=== PATIENT | female | born 1965 | race Caucasian/White ===

== ENCOUNTER → 2016-09-24 | Outpatient (CLI) | payer BC ==
[~2016-09-24] MED LIST: ASPI325T45 PO; CHOL2000 PO; CHOL4POW4 PO; CYAN100020 PO; IBUP-1050 PO; LORA-741 PO; MXZC25 PO; PARO1TAB27 PO; RANI150T3 PO
--- NOTE | 2016-09-25 08:21 | MAMMOGRAPHY REPORT ---
BILATERAL DIGITAL SCREENING MAMMOGRAM TOMOSYNTHESIS WITH CAD: 09/24/2016 CLINICAL HISTORY: Routine screening. Patient has no complaints. TECHNIQUE: Breast tomosynthesis in addition to standard 2D mammography was performed. Current study was also evaluated with a Computer Aided Detection (CAD) system. COMPARISON: Comparison is made to exams dated: 09/19/2015 mammogram, 05/04/2013 mammogram, 02/28/2012 m ammogram, 01/16/2011 mammogram, 08/10/2009 mammogram - [facility], and 12/01/2007. BREAST COMPOSITION: There are scattered areas of fibroglandular density in both breasts. FINDINGS: There are a few punctate microcalcifications, stable in each breast. No new suspicious mas s, architectural distortion or cluster of microcalcifications is seen. IMPRESSION: ACR BI-RADS CATEGORY 1: NEGATIVE There is no mammographic evidence of malignancy. A 1 year screening mammogram is recommended. The pa tient will receive written notification of the results. Approximately 10% of breast cancers are not detected with mammography. A negative mammographic report should not delay biopsy if a clinically suggestive mass is present. Gerda Roman M.D. ay/:09/24/2016 17:33:15 Garland Maker: Joann BENNETT(Coral)(M), [facility] letter sent: Normal 1/2 BI-RADS Code: ACR BI-RADS Category 1: Negative
== END | disposition home or self-care (01) ==
LOC: C.MAMM 14:19
PROVIDERS: ATTEND Obstetrics & Gynecology
DX: Z12.31 Encounter for screening mammogram for malignant neoplasm of breast (principal)

== ENCOUNTER → 2017-07-25 | Outpatient (CLI) | payer OTHER ==
[~2017-07-25] MED LIST changes: +ASPECOTC PO; -ASPI325T45 PO
== END | disposition home or self-care (01) ==
LOC: C.PAPS 11:56
PROVIDERS: ATTEND Obstetrics & Gynecology
DX: Z12.4 Encounter for screening for malignant neoplasm of cervix (principal)

== ENCOUNTER 2020-05-28 14:11 | Observation (INO) ==
[2020-05-28] MEDS ORDERED: NITROGLYCERIN SL 0.4 MG/TAB TAB SL PRN ×2 (14:34→20:37)
--- NOTE | 2020-05-28 14:40 | Emergency Department Note ---
History of Present Illness General Chief Complaint: Chest Pain Stated Complaint: BURNING IN CHEST & NECK AREA/STARTED NEW MED ON FR Time Seen by Provider: 05/28/20 14:20 Source: patient, RN notes reviewed and old records reviewed Mode of arrival: ambulatory Limitations: no limitations History of Present Illness Provider Complaint: chest pain Onset (ago): day(s) 3 Duration: intermittent Onset: during exertion Pain Location: left chest and epigastric Pain Radiation: back and neck Severity: mild Current Pain Intensity: 0 Quality: + aching Relieved By: + rest Exacerbated By: + exertion Context: + new medications (Paxil); no recent illness, no recent surgery and no recent immobilization Associated symptoms: no nausea, no vomiting, no diaphoresis, no dyspnea, no sense of impending doom, no syncope, no palpitations and no fever Treatments prior to arrival: none This is a 55-year-old female who presents emergency department complaining of chest pain. The patient reports for the past 3 days she has been having chest pain that radiates up into her neck as well as her back. The patient reports a large amount of anxiety. She reports rest makes the chest pain better however exertion makes it worse. She describes the pain as an ache. She has not taken anything for the pain. Related Data On Oral Contraceptives: No Home Medications Medication Instructions Recorded Confirmed Type losartan 50 mg tablet 50 mg PO BID 05/12/20 05/28/20 History cholecalciferol (vitamin D3) 25 mcg PO DAILY 05/28/20 05/28/20 History [Vitamin D3] cholestyramine (with sugar) 4 g PO DAILY 05/28/20 05/28/20 History paroxetine HCl 20 mg PO DAILY 05/28/20 05/28/20 History aspirin 81 mg PO QAM 30 Days #30 tab 05/29/20 Rx pantoprazole 40 mg PO QAM 30 Days #30 tab 05/29/20 Rx Allergies Allergy/AdvReac Type Severity Reaction Status Date / Time Sulfa (Sulfonamide Allergy Mild RASH Verified 05/28/20 14:52 Antibiotics) clarithromycin Allergy Unknown Verified 05/28/20 14:52 Penicillins AdvReac Mild N/V Verified 05/28/20 14:52 Past Med/Surg History Medical History Anxiety GERD (gastroesophageal reflux disease) Hypertension Surgical History History of cholecystectomy History of dilation and curettage Family History Father Hypertension Heart disease Parkinson disease Aunt Breast cancer Ethan Denies family history of Colorectal cancer Social History Smoking Status: Never smoker Hx Alcohol Use: Yes Hx Substance Use: No Preferred Language: Burmese Communication Ability: Effective Moving Van Driver Required: No Beliefs That Will Affect Care: None Current Living Situation: Spouse and Family Current Living Situation Comment: spouse and children Feels Safe at Home: Yes Assistive Devices: None Review of Systems A total of 10 systems reviewed and were otherwise negative Physical Exam Vital Signs Vital Signs - 24 hr 05/28/20 14:15 05/28/20 14:40 05/28/20 15:03 Temperature 36.7 C Temperature Source Oral Pulse Rate 83 Pulse Rate [Left Finger] 75 Respiratory Rate 19 22 Respiratory Effort / Characteristics Non-Labored Respiratory Depth Normal Blood Pressure 199/105 H Blood Pressure [Left Arm] 181/98 H Blood Pressure Mean 136 Blood Pressure Mean [Left Arm] 125 Pulse Oximetry 97 96 96 Oxygen Delivery Method Room Air Room Air Room Air Sepsis Recent Fever Within 48 Hours No Sepsis New/Unexplained Change in Mental Status No Sepsis Action Taken by Nursing No Action Required -VITAL SIGNS - Vital signs and nursing notes were reviewed. GENERAL - 55-year-old female appearing stated age who is in no acute distress. Communicates well with provider and answers questions appropriately. SKIN - Without rashes. HEAD - NC/AT. EYES - PERRL with EOMI bilaterally. Sclera anicteric. Palpebral conjunctiva pink and moist with no injection noted. EARS - No deformities of external structures noted on gross examination bilaterally. NOSE - Midline and without cyanosis. No epistaxis or purulent drainage noted. Septum midline without deviation or septal hematoma noted. MOUTH/OROPHARYNX - Without perioral cyanosis. Buccal mucosa pink and moist and without leukoplakia. Tongue midline with equal elevation of palate bilaterally. No tonsillar hypertrophy, erythema, or exudates noted. dentition noted. NECK - Neck with FROM. Supple to palpation. lymphadenopathy noted. No nuchal rigidity. LUNGS - Chest wall symmetric without accessory muscle use, intercostals retractions, or central cyanosis. Normal vesicular breath sounds CTA B/L. No wheezes, rales, or rhonchi appreciated. CARDIAC - RRR with S1/S2. No murmur, rubs, or gallops appreciated. ABDOMEN - Abdominal contour without pulsations or visible masses. BS normoactive all four quadrants. No tenderness, palpable masses, hepatosplenomegaly, or ascites noted. EXTREMITIES - No clubbing or peripheral cyanosis. No pretibial edema present. +3/5 radial, posterior tibial, and dorsalis pedis pulses palpated throughout. +5/5 strength noted in UE/LE bilaterally. NEUROLOGIC - Cranial nerves II through XII grossly intact. Sensory intact to li ght touch throughout. Patellar reflexes +2/4. PSYCH - A&Ox3 and cooperates fully with examiner. Pt is very pleasant and interacts well with examiner. Course Administered Medications Discontinued Medications Acetaminophen (Acetaminophen 325 Mg Tab) 650 mg PO Q4H PRN PRN Reason: Pain or Fever Stop: 06/27/20 20:36 Last Admin: 05/29/20 02:36 Dose: 650 mg Documented by: [id number] Hydrox/Mg Hydrox/Simethicone (Gi Cocktail Ed Use) 1 dose PO ONE ONE Stop: 05/28/20 14:43 Last Admin: 05/28/20 15:01 Dose: 1 dose Documented by: [id number] Aspirin (Aspirin 81 Mg Ectab) 81 mg PO QAM [facility] Stop: 06/28/20 08:59 Last Admin: 05/29/20 07:55 Dose: 81 mg Documented by: [id number] Cholestyramine Resin (Cholestyramine Light 4 Gm Pkt) 4 gm PO DAILY@1000 [facility] Stop: 06/28/20 09:59 Last Admin: 05/29/20 11:32 Dose: Not Given Documented by: [id number] Famotidine (Famotidine 40 Mg Tablet) 40 mg PO NOW ONE Stop: 05/28/20 14:43 Last Admin: 05/28/20 15:27 Dose: 40 mg Documented by: [id number] Potassium Chloride (K Pan / Wtr) 10 meq in 100 mls @ 100 mls/hr IV Q1H LASHANDA Stop: 05/28/20 17:29 Last Infusion: 05/28/20 17:58 Dose: 0 mls/hr Documented by: [id number] Admin: 05/28/20 16:40 Dose: 80 mls/hr Documented by: [id number] Infusion: 05/28/20 16:40 Dose: 0 mls/hr Documented by: [id number] Admin: 05/28/20 15:26 Dose: 100 mls/hr Documented by: [id number] Magnesium Sulfate/Dextrose (Magnesium Sulfate / D5w) 1 gm in 100 mls @ 50 mls/hr IV Q2H LASHANDA Stop: 05/29/20 00:59 Last Infusion: 05/29/20 04:59 Dose: 0 mls/hr Documented by: [id number] Admin: 05/28/20 23:40 Dose: 50 mls/hr Documented by: [id number] Infusion: 05/28/20 23:39 Dose: 50 mls/hr Documented by: [id number] Admin: 05/28/20 21:39 Dose: 50 mls/hr Documented by: [id number] Lorazepam (Lorazepam 0.5 Mg Tab) 0.5 mg PO Q6H PRN PRN Reason: Anxiety Stop: 06/27/20 20:36 Last Admin: 05/29/20 07:55 Dose: 0.5 mg Documented by: [id number] Losartan Potassium (Losartan Potassium 50 Mg Tab) 50 mg PO BID LASHANDA Stop: 06/27/20 20:59 Last Admin: 05/29/20 07:56 Dose: 50 mg Documented by: [id number] Admin: 05/28/20 21:40 Dose: 50 mg Documented by: [id number] Metoclopramide HCl (Metoclopramide Hcl Inj 5 Mg/Ml 2 Ml Vial) 10 mg IV NOW STA Stop: 05/28/20 15:20 Last Admin: 05/28/20 16:30 Dose: Not Given Documented by: [id number] Nitroglycerin (Nitroglycerin 2% Ointment 30gm Tube) 1 inch EXT NOW STA Stop: 05/28/20 17:04 Last Admin: 05/28/20 17:11 Dose: 1 inch Documented by: [id number] Pantoprazole Sodium (Pantoprazole 40 Mg Tab) 40 mg PO NOW STA Stop: 05/28/20 20:38 Last Admin: 05/28/20 21:39 Dose: 40 mg Documented by: [id number] Pantoprazole Sodium (Pantoprazole 40 Mg Tab) 40 mg PO QAM [facility]ASHANDA Stop: 06/28/20 08:59 Last Admin: 05/29/20 07:55 Dose: 40 mg Documented by: [id number] Paroxetine HCl (Paroxetine Hcl 20 Mg Tab) 20 mg PO DAILY LASHANDA Stop: 06/27/20 18:30 Last Admin: 05/28/20 19:20 Dose: 20 mg Documented by: [id number] Potassium Chloride (Potassium Chloride Crtab 20 Meq Tabcr) 40 meq PO NOW STA Stop: 05/28/20 15:19 Last Admin: 05/28/20 15:26 Dose: 40 meq Documented by: [id number] Potassium Chloride (Potassium Chloride Crtab 20 Meq Tabcr) 40 meq PO NOW STA Stop: 05/28/20 16:27 Last Admin: 05/28/20 16:39 Dose: 40 meq Documented by: [id number] Potassium Chloride (Potassium Chloride Crtab 20 Meq Tabcr) 20 meq PO BID LASHANDA Stop: 05/29/20 21:01 Last Admin: 05/29/20 07:56 Dose: 20 meq Documented by: [id number] Admin: 05/28/20 21:39 Dose: 20 meq Documented by: [id number] Sucralfate (Sucralfate 1 Gm Tab) 1 gm PO NOW STA Stop: 05/28/20 14:43 Last Admin: 05/28/20 15:01 Dose: 1 gm Documented by: [id number] Medical Decision Making Differential Diagnosis + fracture of rib, + pneumothorax, + stable angina, + unstable angina pectoris, + atypical chest pain, + st elevation myocardial infarction, + costochondritis, + chest pain, + biliary colic, + cardiac ischemia, + myocarditis, + pericarditis, + costochondritis, + pleurisy, + aortic dissection, + pulmonary embolism, + pneumonia, + musculoskeletal, + infections, + cholecystitis, + pancreatitis and + esophageal rupture Medical Records Attestation: I reviewed the patient's medical records. Home Medications Current Medication List: was personally reviewed by me Laboratory Data Attestation: I reviewed the patient's lab results. Result diagrams: 05/28/20 14:48 05/29/20 05:53 Labs: Lab Results 05/28/20 05/28/20 05/28/20 Range/Units 14:48 14:48 14:48 WBC 8.94 (4.8-10.8) K/uL RBC 4.82 (4.2-5.4) M/uL Hgb 14.7 (12.0-16.0) g/dL Hct 42.2 (37-47) % MCV 87.6 (80-100) fL MCH 30.5 (25-34) pg MCHC 34.8 (32-36) g/dL RDW Std Deviation 38.1 (36.4-46.3) fL RDW Coeff of Vivian 11.9 (11.5-14.5) % Plt Count 241 (130-400) K/uL MPV 9.8 (7.4-10.4) fL Immature Gran % (Auto) 0.1 % Neut % (Auto) 71.4 % Lymph % (Auto) 20.9 % [place] % (Auto) 5.9 % Eos % (Auto) 0.9 % Baso % (Auto) 0.8 % Neut # (Auto) 6.38 (1.4-6.5) K/uL Lymph # (Auto) 1.87 (1.2-3.4) K/uL [place] # (Auto) 0.53 (0.11-0.59) K/uL Eos # (Auto) 0.08 (0-0.5) K/uL Baso # (Auto) 0.07 (0-0.2) K/uL Immature Gran # (Auto) 0.01 (0.00-0.02) K/uL D-Dimer < 190 (0-500) ug/L FEU Sodium 140 (136-145) mmol/L Potassium 2.7 L (3.5-5.1) mmol/L Chloride 101 (98-107) mmol/L Carbon Dioxide 31 (21-32) mmol/L Anion Gap 8.0 (3-11) BUN 9 (7-18) mg/dl Creatinine 0.67 (0.6-1.2) mg/dl Est Cr Clr Drug Dosing 107.4 ml/min Est GFR ( Amer) 116.3 Est GFR (Non-Af Amer) 100.4 BUN/Creatinine Ratio 13.5 (10-20) Glucose 106 H (70-99) mg/dl Calcium 9.1 (8.5-10.1) mg/dl Total Bilirubin 0.5 (0.2-1) mg/dl AST 15 (15-37) U/L ALT 24 (12-78) U/L Alkaline Phosphatase 74 (45-117) U/L Total Creatine Kinase 51 (26-192) U/L CK-MB (CK-2) < 1.0 (0.5-3.6) ng/ml CK/CKMB % Calc TNP Troponin I 0.036 (0-0.045) ng/ml Total Protein 7.9 (6.4-8.2) gm/dl Albumin 4.2 (3.4-5.0) gm/dl Globulin 3.7 (2.5-4.0) gm/dl Albumin/Globulin Ratio 1.1 (0.9-2) Lipase 144 (73-393) U/L Imaging Data Chest x-ray: Radiologist's impression: [place], [place] [phone] XRay Report Patient: NILES LAL Admit Date: 05/28/20 MR#: [id number] Address1: [address] [place] [address] Acct ID:[id number] Address2: Date: 1965 [facility] Zip: [place] [address] Age: 55 Location: ED Sex: F Room/Bed: Att Phy: Diagnosis: BURNING IN CHEST & NECK AREA/STARTED NEW MED ON FR Raisa Phy: Leana Durant CRNP Service Date: 05/28/20 [facility] Phy: Interpreting Phy: Yrn Cleary MD Admit Phy: Ordering Phy: Nahun Prado MD cc: ~ XR chest 1V portable CLINICAL HISTORY: Atypical chest pain COMPARISON STUDY: 01/05/2012 FINDINGS: The cardiac and mediastinal contours are normal. There is no evidence of focal pulmonary consolidation. There is no evidence of failure. No pleural effusions are visualized.[ IMPRESSION: No active disease in the chest. ACT 112: Negative or not required by law. Electronically signed by: Yrn Cleary M.D. 05/28/2020 2:55 PM Dictated: 05/28/201453 Transcribed: 05/28/201453 ECG Data Attestation: I personally reviewed and interpreted this ECG as follows: Indication: chest pain Rate (beats per minute): 78 Rhythm: normal sinus Findings: no ST depression and no ST elevation Comparison ECG Date: from (06/06/2011) Change: no significant change Additional Comments: Repeat EKG at 1543 shows a normal sinus rhythm no ST elevation or depression QTC is 454 ventricular rate is 71. It is unchanged from the previous EKG. MDM Narrative This is a 55-year-old female who presents emergency department complaining of chest pain. The patient has an abnormal EKG however it is unchanged from the previous one back in 2012 however despite this her troponin is not 0. While she was observed here in the emergency department the patient's troponin actually went up. In addition her potassium was found to be low. She was started on IV potassium and given oral supplementation. Due to the elevation in the troponin I did discuss the case the hospitalist service did agree to admit the patient. Patient is in agreement with the treatment plan. Patient was seen and evaluated as above in room A12. Review was performed of nursing notes and vital signs. I did review pertinent previous visits and patient history. After obtaining a thorough history and physical examination the above work up was performed. An order was placed for continuous cardiac monitoring. The monitor shows a rate of 82 with Normal Sinus rhythm. The patient was evaluated during a period of high volume and high acuity while the hospital was at overcapacity during the global COVID-19 pandemic, and that diagnosis was suspected/considered upon their initial presentation. Their evaluation, treatment and testing was consistent with current guidelines for patients who present with complaints or symptoms that may be related to COVID-19 . Impression & Plan Chest pain, Hypokalemia, Hypertension Discharge Plan Visit Data Chief Complaint: Chest Pain Stated Complaint: BURNING IN CHEST & NECK AREA/STARTED NEW MED ON FR ED Provider: Nahun Prado Discharge Problem: Chest pain, Hypokalemia, Hypertension Patient Disposition: Admitted As Inpatient Condition: Good Discharge Instructions Interventions: ED Discharge Assessment Last Done: 05/28/20 19:59 Discharge Problem: Chest pain Qualifiers: Chest pain type: unspecified Qualified Code(s): R07.9 - Chest pain, unspecified Hypertension Qualifiers: Hypertension type: unspecified Qualified Code(s): I10 - Essential (primary) hypertension
[2020-05-28] MEDS ORDERED: SUCRALFATE 1 GM TAB PO STA (14:42)
[2020-05-28] MEDS ORDERED: FAMOTIDINE 40 MG TABLET PO ONE (14:42)
[2020-05-28] MEDS ORDERED: GI COCKTAIL ED USE PO ONE (14:42)
[2020-05-28 14:56] LABS: Basophils # (auto) 0.07 K/uL (0-0.2); Basophils % (auto) 0.8 %; Eosinophils # (auto) 0.08 K/uL (0-0.5); Eosinophils % (auto) 0.9 %; Hematocrit (blood only) 42.2 % (37-47); Hemoglobin 14.7 g/dL (12.0-16.0); Immature Granulocytes # (auto) 0.01 K/uL (0.00-0.02); Immature Granulocytes % (auto) 0.1 %; Lymphocytes # (auto) 1.87 K/uL (1.2-3.4); Lymphocytes % (auto) 20.9 %; Mean Corpuscular Hemoglobin 30.5 pg (25-34); Mean Corpuscular Hgb Conc 34.8 g/dL (32-36); Mean Corpuscular Volume 87.6 fL (80-100); Mean Platelet Volume 9.8 fL (7.4-10.4); Monocytes # (auto) 0.53 K/uL (0.11-0.59); Monocytes % (auto) 5.9 %; Neutrophils # (auto) 6.38 K/uL (1.4-6.5); Neutrophils % (auto) 71.4 %; Platelet Count 241 K/uL (130-400); RDW Coefficient of Variation 11.9 % (11.5-14.5); RDW Standard Deviation 38.1 fL (36.4-46.3); Red Blood Count 4.82 M/uL (4.2-5.4); White Blood Count 8.94 K/uL (4.8-10.8)
--- NOTE | 2020-05-28 14:56 | XRay Report ---
XR chest 1V portable CLINICAL HISTORY: Atypical chest pain COMPARISON STUDY: 01/05/2012 FINDINGS: The cardiac and mediastinal contours are normal. There is no evidence of focal pulmonary co nsolidation. There is no evidence of failure. No pleural effusions are visualized.[ IMPRESSION: No active disease in the chest. ACT 112: Negative or not required by law. Electronically signed by: Yrn Cleary M.D. 05/28/2020 2:55 PM
[2020-05-28 15:16] LABS: Alanine Aminotransferase 24 U/L (12-78); Albumin Level 4.2 gm/dl (3.4-5.0); Aspartate Aminotransferase 15 U/L (15-37); BUN Creatinine Ratio 13.5 (10-20); Blood Urea Nitrogen 9 mg/dl (7-18); Calcium 9.1 mg/dl (8.5-10.1); Carbon Dioxide 31 mmol/L (21-32); Chloride 101 mmol/L (98-107); Creatinine Clr Calc Pharmacy 107.4 ml/min; Est GFR (African American) 116.3; Est GFR (Non-African American) 100.4; Glucose 106 mg/dl (70-99); Lipase 144 U/L (73-393); Potassium 2.7 mmol/L (3.5-5.1); Sodium 140 mmol/L (136-145)
[2020-05-28] MEDS ORDERED: POTASSIUM CHLORIDE CRTAB 20 MEQ TABCR PO STA ×2 (15:18→16:26)
[2020-05-28] MEDS ORDERED: METOCLOPRAMIDE HCL INJ 5 MG/ML 2 ML VIAL IV STA (15:19)
[2020-05-28 15:21] LABS: Albumin Globulin Ratio 1.1 (0.9-2); Alkaline Phosphatase 74 U/L (45-117); Bilirubin,Total 0.5 mg/dl (0.2-1); Creatine Kinase 51 U/L (26-192); Creatine Kinase MB < 1.0 ng/ml (0.5-3.6); Globulin 3.7 gm/dl (2.5-4.0); Total Protein 7.9 gm/dl (6.4-8.2); Troponin I 0.036 ng/ml (0-0.045)
[2020-05-28] MEDS: POTASSIUM CHLORIDE / WTR 10 MEQ/100 ML PLCT IV SCH ×2 (15:26→16:40)
[2020-05-28] MEDS ORDERED: NITROGLYCERIN 2% OINTMENT 30GM TUBE EXT STA (17:03)
[2020-05-28 17:14] LABS: D Dimer < 190 ug/L FEU (0-500)
--- NOTE | 2020-05-28 17:51 | History & Physical Report ---
Date of Service May 28, 2020 Assessment & Plan (1) Chest pain: Chest pain is atypical and may be GERD however because her EKG is not "totally normal, we will have her in the hospital with troponins and likely pursue stress test in the morning Patient started on aspirin will be continued on losartan, checking a lipid panel in the morning (2) Abnormal EKG: Feeling abnormal EKG is likely from hypokalemia this will be augmented both with oral and intravenous potassium and also addition of magnesium (3) Diarrhea: This is cholestyramine will be continued. She says she takes this for years intermittently because of diarrhea subsequent to her cholecystectomy. She has had problems with hypokalemia in the past from her diarrhea she is not on any typical or augmenting medications for this and she does take hydrochlorothiazide which can likely augment her potassium loss (4) GERD (gastroesophageal reflux disease): Patient be on Protonix as transition from famotidine (5) Anxiety: Paroxetine continues and she will be given Ativan as needed History of Present Illness Primary Care Provider: JOAQUÍN Tilley Patient presents with concern for chest burning. Patient is a history of anxiety and she says she knows he has panic attacks that act sometimes like this. Chest burning has been intermittent over the last few days but what really is treated a concern is her potassium was 2.7 and looks like she has U waves on EKG. Subsequently she does not have a normal EKG. Additionally her troponin although not in the abnormal range is detectable subsequently she will be observed in our facility supplementing her potassium and magnesium trending her troponins and likely having a stress test in the morning. The patient states that at home she cannot reproduce her chest pain is not associated with any other symptoms and she has had problems in the past with hypokalemia from diarrhea which has been resolved and since her previous cholecystectomy. She takes intermittent cholestyramine to help with her diarrhea. She says this is also augmented by the fact that she has malrotation of the small bowel and her GI tract is not in the normal anatomical locations. She also has been on Pepcid for some time has been having increasing reflux symptoms she cannot tell whether this is sometimes may be reflux. Allergies Allergy/AdvReac Type Severity Reaction Status Date / Time Sulfa (Sulfonamide Allergy Mild RASH Verified 05/28/20 14:52 Antibiotics) clarithromycin Allergy Unknown Verified 05/28/20 14:52 Penicillins AdvReac Mild N/V Verified 05/28/20 14:52 Home Medications Medication Instructions Recorded Confirmed Type hydrochlorothiazide 12.5 mg tablet 12.5 mg PO BID 05/12/20 05/28/20 History losartan 50 mg tablet 50 mg PO BID 05/12/20 05/28/20 History cholecalciferol (vitamin D3) 25 mcg PO DAILY 05/28/20 05/28/20 History [Vitamin D3] cholestyramine (with sugar) 4 g PO DAILY 05/28/20 05/28/20 History famotidine 40 mg PO DAILY 05/28/20 05/28/20 History paroxetine HCl 20 mg PO DAILY 05/28/20 05/28/20 History Past Med/Surg History Surgical History History of cholecystectomy History of dilation and curettage Family History Father Hypertension Heart disease Parkinson disease Aunt Breast cancer Denies family history of Colorectal cancer Social History Smoking Status: Never smoker Feels Safe at Home: Yes Review of Systems Review of Systems: Complete resolution of her distress and fatigue no headache, blurry or double vision no speech or swallowing issues Burning type chest pain, without sensation of pressure or palpitations no shortness of breath, cough or wheezes no abdominal pain, nausea or vomiting, planes of dyspepsia, chronic intermittent diarrhea no dysuria, hematuria or frequency no focal joint pain or swelling no back pain, CVA tenderness or radicular pain no bruising, bleeding or rashes no focal signs of weakness or numbness or altered sensation complaints of anxiety recently started on paroxetine Physical Exam Physical Exam: The patient appeared well nourished and normally developed. Vital signs as documented. Head exam is normocephalic atraumatic no scleral icterus Neck is without JVD, thyromegaly, or carotid bruits. Lungs are clear to auscultation, no focal loss of breath sounds Cardiac exam, Rhythm is regular.. No murmurs, rubs or gallops. Abdominal exam reveals normal bowel sounds, soft non tender, no masses Extremities are nonedematous and both pedal pulses are present Neurologic exam is alert and oriented, no focal loss of strength or sensation Skin is without bruises or rashes Psychologically is with concerns for anxiety Results & Data Results & Data ([facility]) Vital Signs (Past 12 Hours) Vital Signs Temp Pulse Pulse Resp BP BP Pulse Ox 05/28/20 17:30 77 22 05/28/20 17:20 80 17 05/28/20 17:10 82 15 05/28/20 17:00 69 17 161/95 H 05/28/20 16:50 70 19 05/28/20 16:41 77 17 05/28/20 16:30 66 14 05/28/20 16:20 69 18 05/28/20 16:10 64 14 05/28/20 16:00 64 15 175/90 H 05/28/20 15:50 68 14 05/28/20 15:40 71 27 H 05/28/20 15:31 80 21 97 05/28/20 15:30 78 19 186/106 H 98 05/28/20 15:20 66 13 96 05/28/20 15:10 70 12 96 05/28/20 15:04 75 20 181/98 H 98 05/28/20 15:03 75 22 181/98 H 96 05/28/20 15:00 71 17 05/28/20 14:50 80 13 05/28/20 14:47 74 24 167/92 H 05/28/20 14:40 82 14 96 05/28/20 14:30 82 21 05/28/20 14:25 76 19 05/28/20 14:15 98.1 F 83 19 199/105 H 97 EKG shows sinus rhythm with U waves inferior Q waves Chest x-ray is clear Code Status & VTE Plan VTE Prophylaxis Plan VTE Prophylaxis will be ordered: Yes PG Care Time/CCT Total # of Minutes Spent Total Time Spent with Patient: Total time spent is greater than 50% in coordination of care (as documented) at patient's floor/unit and/or counseling patient: Coding Level of Care Code 66255 OBS Care - Level 3 Diagnoses Chest pain R07.9 Abnormal EKG R94.31 Diarrhea R19.7 GERD (gastroesophageal reflux disease) K21.9 Anxiety F41.9
[2020-05-28] MEDS ORDERED: PARoxetine HCL 20 MG TAB PO SCH (18:31)
[2020-05-28] MEDS ORDERED: ACETAMINOPHEN 325 MG TAB PO PRN (20:37)
[2020-05-28] MEDS ORDERED: METOPROLOL TARTRATE 1 MG/ML VIAL IV PRN (20:37)
[2020-05-28] MEDS ORDERED: ONDANSETRON INJ 2 MG/ML 2 ML VIAL IV PRN (20:37)
[2020-05-28] MEDS ORDERED: MoRPHine SULFATE 2 MG/ML CARP IV PRN (20:37)
[2020-05-28] MEDS ORDERED: LORazepam 0.5 MG TAB PO PRN (20:37)
[2020-05-28] MEDS ORDERED: PANTOprazole 40 MG TAB PO STA (20:37)
[2020-05-28] MEDS ORDERED: hydrALAZINE HCL 20 MG/ML VIAL IV PRN (20:37)
[2020-05-28] MEDS ORDERED: LORazepam 0.5 MG/1 ML VIAL IV PRN (20:37)
[2020-05-28] MEDS ORDERED: ALUMINUM/MAGNESIUM SUSP 30 ML UDC PO PRN (20:37)
[2020-05-28] MEDS: POTASSIUM CHLORIDE CRTAB 20 MEQ TABCR PO SCH (21:39)
[2020-05-28] MEDS: MAGNESIUM SULFATE / D5W 1 GM/100 ML BAG IV SCH ×2 (21:39→23:40)
[2020-05-28] MEDS: LOSARTAN POTASSIUM 50 MG TAB PO SCH (21:40)
--- NOTE | 2020-05-29 05:48 | Electrocardiogram Report ---
Test Reason : Blood Pressure : / mmHG Vent. Rate : 078 BPM Atrial Rate : 078 BPM P-R Int : 166 ms QRS Dur : 098 ms QT Int : 418 ms P-R-T Axes : 063 -22 027 degrees QTc Int : 476 ms Normal sinus rhythm Inferior infarct , age undetermined Nonspecific ST abnormality Abnormal ECG When compared with ECG of 05-JAN-2012 11:37, QT has lengthened Confirmed by Torrey Mcdonald ([id number]) on 05/29/2020 5:48:14 AM Referred By: REFERRED SELF Confirmed By:Torrey Mcdonald
--- NOTE | 2020-05-29 05:51 | Electrocardiogram Report ---
Test Reason : Blood Pressure : / mmHG Vent. Rate : 071 BPM Atrial Rate : 071 BPM P-R Int : 174 ms QRS Dur : 094 ms QT Int : 418 ms P-R-T Axes : 065 -10 045 degrees QTc Int : 454 ms Normal sinus rhythm Possible Left atrial enlargement Cannot rule out Anterior infarct , age undetermined Abnormal ECG When compared with ECG of 28-MAY-2020 14:24, No significant change was found Confirmed by Torrey Mcdonald ([id number]) on 05/29/2020 5:50:59 AM Referred By: REFERRED SELF Confirmed By:Torrey Mcdonald
[2020-05-29 07:05] LABS: BUN Creatinine Ratio 11.8 (10-20); Calcium 8.5 mg/dl (8.5-10.1); Creatinine Clr Calc Pharmacy 105.8 ml/min; Est GFR (African American) 116.3; Est GFR (Non-African American) 100.4; Magnesium 2.9 mg/dl (1.8-2.4)
[2020-05-29] MEDS: POTASSIUM CHLORIDE CRTAB 20 MEQ TABCR PO SCH (07:56)
[2020-05-29] MEDS: LOSARTAN POTASSIUM 50 MG TAB PO SCH (07:56)
[2020-05-29] MEDS ORDERED: Nursing to Pharmacy Communication SCH (08:45)
[2020-05-29] MEDS ORDERED: ASPIRIN 81 MG ECTAB PO SCH (09:00)
[2020-05-29] MEDS ORDERED: PANTOprazole 40 MG TAB PO SCH (09:00)
[2020-05-29] MEDS ORDERED: CHOLESTYRAMINE LIGHT 4 GM PKT PO SCH (10:00)
--- NOTE | 2020-05-29 10:40 | Cardiology Consultation ---
Date of Consultation May 29, 2020 Assessment & Plan (1) Chest pain: (2) Hypertension: (3) Hypokalemia: (4) Abnormal EKG: ASSESSMENT/PLAN: 1. Chest pain: Chest pain is atypical and not likely cardiac in nature based on her description. Stress echo imaging was negative for ischemia and she had no chest discomfort despite hypertensive response and good exercise tolerance. If further evaluation for noncardiac chest pain to primary service. She felt very relieved. 2. Hypertension: Blood pressure has been elevated throughout her hospital stay but normal at home. If he continues to have hypertension on discharge, would consider titrating her medical therapy. She admits to anxiety and perhaps that is playing a role in her elevated blood pressures here. Her hypertensive response during exercise could be due to receiving her medications just before the stress test and a few hours later than usual. This can be further adjusted by her PCP as necessary. 3. Hypokalemia: Supplementation was provided by hospitalist service. Consider potassium supplementation as an outpatient or changing her antihypertensive regimen from HCTZ to a different agent (potassium neutral or potassium-sparing). 4. Abnormal ECG: Nonspecific ST abnormality. No dynamic changes noted. Stress echo without ischemic changes. No further ischemic evaluation recommended at this time. 5. Disposition: Patient care communicated with Dr. Centeno of the primary hospitalist service. Follow-up with PCP. Thank you for allowing me to participate in the care of your patient. Please call for any other questions or concerns. Sincerely, Evan Mcdonald M.D. History of Present Illness Reason for Consultation: Chest pain Requesting Physician: Dr. Walls Attending Physician: Tom Centeno, History of Present Illness Mrs. Pruitt is a very pleasant 55-year-old female with a history significant for anxiety, hypokalemia, and GERD. She was admitted on 05/28/2020 under observation status for chest discomfort. She has been experiencing a burning sensation across her chest over the past 2 days. Two days ago, she had 1 episode and yesterday, she had 2 episodes. This pain is not exertional but did occur while standing upright. Chest discomfort resolved quickly within seconds spontaneously. She has a history of anxiety and states that this is different than her anxiety pain. She is currently chest pain-free. She denies associated shortness of breath. She denies syncope, near-syncope, edema, or bleeding. She does have occasional palpitations which is a chronic issue. Her heart can race at any time and describes episodes while in bed. She states that this typically occurs when she is hypokalemic, which is also a chronic issue. She takes HCTZ. In the emergency department, her troponin on presentation was 0.036, followed by 0.039 and then 0.038. ECG demonstrated sinus rhythm. She has not had any further chest discomfort while here. She states that her blood pressure at home has been reasonably controlled with systolic typically near 130 and diastolic in the 80s. She admits that her medications today were given later than she normally takes them at home as she typically takes them near 6:00 a.m.. She was started on paroxetine 1 day prior to her symptom onset. Review of systems: As above. Review of systems otherwise negative/unremarkable. Family history: Father had CAD/mi/CABG at age 58. Social history: Denies tobacco. Rare alcohol. No drugs. Lives at home with her and 2 sons. She also has 2 adult daughters. She works part-time for a dental office. She is unaccompanied. Allergies Allergy/AdvReac Type Severity Reaction Status Date / Time Sulfa (Sulfonamide Allergy Mild RASH Verified 05/28/20 14:52 Antibiotics) clarithromycin Allergy Unknown Verified 05/28/20 14:52 Penicillins AdvReac Mild N/V Verified 05/28/20 14:52 Home Medications Medication Instructions Recorded Confirmed Type losartan 50 mg tablet 50 mg PO BID 05/12/20 05/28/20 History cholecalciferol (vitamin D3) 25 mcg PO DAILY 05/28/20 05/28/20 History [Vitamin D3] cholestyramine (with sugar) 4 g PO DAILY 05/28/20 05/28/20 History paroxetine HCl 20 mg PO DAILY 05/28/20 05/28/20 History aspirin 81 mg PO QAM 30 Days #30 tab 05/29/20 Rx pantoprazole 40 mg PO QAM 30 Days #30 tab 05/29/20 Rx Patient History Medical History (Updated 05/29/20 @ 14:22 by Torrey Mcdonald MD) Anxiety GERD (gastroesophageal reflux disease) Hypertension Surgical History History of cholecystectomy History of dilation and curettage Family History Father Hypertension Heart disease Parkinson disease Aunt Breast cancer Denies family history of Colorectal cancer Social History Smoking Status: Never smoker Hx Alcohol Use: Yes Hx Substance Use: No Preferred Language: Kosovan Communication Ability: Effective 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 Alert and oriented. HEENT: Anicteric sclera. Neck: No JVD. No bruits. Normal carotid upstrokes bilaterally. Cardiac: PMI was nonpalpable. No ventricular heave. Regular rate and rhythm. Normal S1-S2. No murmurs, rubs, or gallops. Pulmonary: Clear to auscultation bilaterally without wheezes, rales, or rhonchi. Abdomen: Soft, nontender, nondistended, with normoactive bowel sounds. No bruits noted. Extremities: 2+ radial pulses bilaterally. 2+ posterior tibialis pulses bilaterally. No edema or cyanosis. No palpable cords. Psychiatric: Affect appears appropriate. Results & Data ([facility]) Vital Signs (Past 12 Hours) Vital Signs Temp Pulse Resp BP BP Pulse Ox 05/29/20 07:40 37.0 C 78 20 174/98 H 165/91 H 97 05/29/20 04:00 36.9 C 77 20 158/77 H 96 05/28/20 22:53 36.5 C 80 20 163/95 H 96 Laboratory Results Laboratory Results - last 24 hr 05/28/20 05/28/20 05/28/20 14:48 14:48 14:48 WBC 8.94 RBC 4.82 Hgb 14.7 Hct 42.2 MCV 87.6 MCH 30.5 MCHC 34.8 RDW Std Deviation 38.1 RDW Coeff of Vivian 11.9 Plt Count 241 MPV 9.8 Immature Gran % (Auto) 0.1 Neut % (Auto) 71.4 Lymph % (Auto) 20.9 [place] % (Auto) 5.9 Eos % (Auto) 0.9 Baso % (Auto) 0.8 Neut # (Auto) 6.38 Lymph # (Auto) 1.87 [place] # (Auto) 0.53 Eos # (Auto) 0.08 Baso # (Auto) 0.07 Immature Gran # (Auto) 0.01 D-Dimer < 190 Sodium 140 Potassium 2.7 L Chloride 101 Carbon Dioxide 31 Anion Gap 8.0 BUN 9 Creatinine 0.67 Est Cr Clr Drug Dosing 107.4 Est GFR ( Amer) 116.3 Est GFR (Non-Af Amer) 100.4 BUN/Creatinine Ratio 13.5 Glucose 106 H Calcium 9.1 Magnesium Total Bilirubin 0.5 AST 15 ALT 24 Alkaline Phosphatase 74 Total Creatine Kinase 51 CK-MB (CK-2) < 1.0 CK/CKMB % Calc TNP Troponin I 0.036 Total Protein 7.9 Albumin 4.2 Globulin 3.7 Albumin/Globulin Ratio 1.1 Triglycerides Cholesterol LDL Cholesterol, Calc VLDL Cholesterol, Calc HDL Cholesterol Cholesterol/HDL Ratio Lipase 144 COVID-19 Eval Order SARS-CoV-2, RNA, NAAT 05/28/20 05/28/20 05/28/20 18:00 18:00 21:20 WBC RBC Hgb Hct MCV MCH MCHC RDW Std Deviation RDW Coeff of Vivian Plt Count MPV Immature Gran % (Auto) Neut % (Auto) Lymph % (Auto) [place] % (Auto) Eos % (Auto) Baso % (Auto) Neut # (Auto) Lymph # (Auto) [place] # (Auto) Eos # (Auto) Baso # (Auto) Immature Gran # (Auto) D-Dimer Sodium Potassium Chloride Carbon Dioxide Anion Gap BUN Creatinine Est Cr Clr Drug Dosing Est GFR ( Amer) Est GFR (Non-Af Amer) BUN/Creatinine Ratio Glucose Calcium Magnesium Total Bilirubin AST ALT Alkaline Phosphatase Total Creatine Kinase CK-MB (CK-2) CK/CKMB % Calc Troponin I 0.039 Total Protein Albumin Globulin Albumin/Globulin Ratio Triglycerides Cholesterol LDL Cholesterol, Calc VLDL Cholesterol, Calc HDL Cholesterol Cholesterol/HDL Ratio Lipase COVID-19 Eval [facility] SARS-CoV-2, RNA, NAAT NEGATIVE 05/28/20 05/29/20 Unknown 05:53 WBC RBC Hgb Hct MCV MCH MCHC RDW Std Deviation RDW Coeff of Vivian Plt Count MPV Immature Gran % (Auto) Neut % (Auto) Lymph % (Auto) [place] % (Auto) Eos % (Auto) Baso % (Auto) Neut # (Auto) Lymph # (Auto) [place] # (Auto) Eos # (Auto) Baso # (Auto) Immature Gran # (Auto) D-Dimer Sodium 142 Potassium 4.0 D Chloride 107 Carbon Dioxide 32 Anion Gap 3.0 BUN 8 Creatinine 0.67 Est Cr Clr Drug Dosing 105.8 Est GFR ( Amer) 116.3 Est GFR (Non-Af Amer) 100.4 BUN/Creatinine Ratio 11.8 Glucose 93 Calcium 8.5 Magnesium 2.9 H Total Bilirubin AST ALT Alkaline Phosphatase Total Creatine Kinase CK-MB (CK-2) CK/CKMB % Calc Troponin I 0.038 Total Protein Albumin Globulin Albumin/Globulin Ratio Triglycerides 42 Cholesterol 163 LDL Cholesterol, Calc 93 VLDL Cholesterol, Calc 8 HDL Cholesterol 62 Cholesterol/HDL Ratio 3 Lipase COVID-19 Eval Order SARS-CoV-2, RNA, NAAT Diagnostic Findings ECGs personally reviewed: ECG 05/28/2020 at 3:43 p.m.: Sinus rhythm 71 beats per minute. ECG 05/28/2020 at 2:24 p.m.: Sinus rhythm 78 beats per minute. Possible inferior infarct. Nonspecific ST abnormality. Stress echo performed 05/29/2020: Good exercise tolerance. Negative stress echo imaging for ischemia. Target heart rate was attained. Normal LV systolic function. Chest x-ray 05/28/2020: No acute process per Radiology. Medications Administered Current Inpatient Medications Acetaminophen (Acetaminophen 325 Mg Tab) 650 mg PO Q4H PRN PRN Reason: Pain or Fever Stop: 06/27/20 20:36 Last Admin: 05/29/20 02:36 Dose: 650 mg Documented by: Al Hydrox/Mg Hydrox/Simethicone (Aluminum/Magnesium Susp 30 Ml Udc) 15 ml PO Q4H PRN PRN Reason: Dyspepsia Stop: 06/27/20 20:36 Aspirin (Aspirin 81 Mg Ectab) [facility] [place] [place] Stop: 06/28/20 08:59 Last Admin: 05/29/20 07:55 Dose: 81 mg Documented by: Cholestyramine Resin (Cholestyramine Light 4 Gm Pkt) 4 gm PO DAILY@1000 LASHANDA Stop: 06/28/20 09:59 Hydralazine HCl (Hydralazine Hcl 20 Mg/Ml Vial) 10 mg IV Q8 PRN PRN Reason: Blood Pressure - High Stop: 06/27/20 20:36 Lorazepam (Ativan) 0.5 mg in 1 mls @ 1 mls/min IV Q4H PRN PRN Reason: Agitation Stop: 06/27/20 20:36 Lorazepam (Lorazepam 0.5 Mg Tab) 0.5 mg PO Q6H PRN PRN Reason: Anxiety Stop: 06/27/20 20:36 Last Admin: 05/29/20 07:55 Dose: 0.5 mg Documented by: Losartan Potassium (Losartan Potassium 50 Mg Tab) 50 mg PO BID [facility] Stop: 06/27/20 20:59 Last Admin: 05/29/20 07:56 Dose: 50 mg Documented by: Metoprolol Tartrate (Metoprolol Tartrate 1 Mg/Ml Vial) 5 mg IV Q4 PRN PRN Reason: sbp> 185, dbp >95, HR >120 Stop: 06/27/20 20:36 Morphine Sulfate (Morphine Sulfate 2 Mg/Ml Carp) 2 mg IV Q30M PRN PRN Reason: Chest Pain Stop: 06/11/20 20:36 Nitroglycerin (Nitroglycerin Sl 0.4 Mg/Tab Tab) 0.4 mg SL UD PRN PRN Reason: Chest Pain Stop: 06/27/20 20:36 Ondansetron HCl (Ondansetron Inj 2 Mg/Ml 2 Ml Vial) 4 mg IV Q6H PRN PRN Reason: Nausea Stop: 06/27/20 20:36 Pantoprazole Sodium (Pantoprazole 40 Mg Tab) 40 mg PO QAM [facility] Stop: 06/28/20 08:59 Last Admin: 05/29/20 07:55 Dose: 40 mg Documented by: Paroxetine HCl (Paroxetine Hcl 20 Mg Tab) 20 mg PO QDD [facility] Stop: 06/28/20 16:29 Potassium Chloride (Potassium Chloride Crtab 20 Meq Tabcr) 20 meq PO BID [facility] Stop: 05/29/20 21:01 Last Admin: 05/29/20 07:56 Dose: 20 meq Documented by: PG Care Time/CCT Total # of Minutes Spent Total Time Spent with Patient: Total time spent is greater than 50% in coordination of care (as documented) at patient's floor/unit and/or counseling patient: Coding Level of Care Code 06410 Office/OBS Consult Lvl 4 Diagnoses Chest pain R07.9 Hypertension I10 Hypokalemia E87.6 Abnormal EKG R94.31
--- NOTE | 2020-05-29 11:23 | Discharge Summary ---
Date of Service May 29, 2020 Admission HPI Per Admitting Provider Patient presents with concern for chest burning. Patient is a history of anxiety and she says she knows he has panic attacks that act sometimes like this. Chest burning has been intermittent over the last few days but what really is treated a concern is her potassium was 2.7 and looks like she has U waves on EKG. Subsequently she does not have a normal EKG. Additionally her troponin although not in the abnormal range is detectable subsequently she will be observed in our facility supplementing her potassium and magnesium trending her troponins and likely having a stress test in the morning. The patient s tates that at home she cannot reproduce her chest pain is not associated with any other symptoms and she has had problems in the past with hypokalemia from diarrhea which has been resolved and since her previous cholecystectomy. She takes intermittent cholestyramine to help with her diarrhea. She says this is also augmented by the fact that she has malrotation of the small bowel and her GI tract is not in the normal anatomical locations. She also has been on Pepcid for some time has been having increasing reflux symptoms she cannot tell whether this is sometimes may be reflux. Principal Diagnosis Chest pain, atypical Discharge Exam Constitutional WD/WN, vitals as above + overweight; no acute distress Neck trachea midline, no thyromegaly Respiratory normal respiratory effort, lungs clear to auscultation Cardiovascular RRR, no murmur, no edema Gastrointestinal (Abdomen) normal bowel sounds, soft, nontender, no hepatosplenomegaly Musculoskeletal no cyanosis or clubbing, extremities motor strength 5/5 Skin no rashes, warm and dry Neurologic patellar DTR's 2+ bilat, sensation intact and PERRL, EOMI, accommodation nl, no face palsy, no dysarthria Psychiatric A+Ox3, euthymic affect Lymphatic no cervical or axillary lymphadenopathy Discharge Data Allergies Allergy/AdvReac Type Severity Reaction Status Date / Time Sulfa (Sulfonamide Allergy Mild RASH Verified 05/28/20 14:52 Antibiotics) clarithromycin Allergy Unknown Verified 05/28/20 14:52 Penicillins AdvReac Mild N/V Verified 05/28/20 14:52 Consultations 05/28/20 17:02 Consult Cardiology Stat 05/28/20 17:03 ED Decision to Admit Stat Hospital Course (1) Chest pain: Chest pain is atypical and may be GERD and/or anxiety troponin negative x 3 sets, EKG without obvious ischemic changes stress echo today was negative for ischemia continue on aspirin 81mg daily for protection BP is up here but she says she is anxious, normally well controlled in office d/c to home, treat GERD with pantoprazole to see if it helps burning sensation (2) Abnormal EKG: possible result of low K at 2.7 resolved now, K is 4.2 (3) Diarrhea: cholestyramine will be continued. She says she takes this for years intermittently because of diarrhea subsequent to her cholecystectomy (4) GERD (gastroesophageal reflux disease): change to pantoprazole, stop Pepcid take for 14-28 days and see if it helps GERD (5) Anxiety: Paroxetine as recently started by PCP follow up with PCP on 06/15 (6) Hypokalemia: likely from GI losses K up to 4.2 today will stop HCTZ going forward check BMP in one week with results to PCP hold on giving daily potassium for now Total Time Total Time Spent Total Time Spent (In Minutes): 31 minutes Discharge Plan Discharge Items Patient Disposition: Home - Self-Care Reason For Visit: CHEST PAIN Discharge Diagnosis: Chest pain Negative stress echocardiogram Hypertension Anxiety GERD Condition on Discharge: Good Goals: follow up with PCP as previously scheduled Activity: Resume your previous activity Driving/Machine Use: No limitations Weightbearing: Full weightbearing Non-emergency contact: Primary Care Provider Call non-emergency contact if: you have any medication questions Follow-up/Referrals: Leana Durant CRNP [Primary Care Provider] - (can keep prior appt on 06/15, will check labs next week) Diet: Heart Healthy Ambulatory Orders: Basic Metabolic Panel (Routine) Timeframe: 1 Week Location: Determined by Patient Ordered By: Tom Miller Attending Provider Instructions: Medications: - ASPIRIN: given age and risk factors would recommend daily aspirin, 81mg daily, can obtain over the counter - PANTOPRAZOLE: take 40mg daily, ideally 30 minutes prior to breakfast, try it for 14-28 days to see if it eliminates reflux, stop Pepcid OTC - HCTZ: stop taking this due to low potassium Chest pain, burning pain no significant changes on EKG, troponin (heart enzyme) negative for three sets stress echocardiogram was negative for signs of ischemia today pain was likely due to anxiety, could have been GERD as well recommend treating GERD with pantoprazole daily, can use Tums/Maalox as needed treat anxiety with Paxil, follow up with PCP recommend checking potassium level in a week, will give you a script and results will go to [facility] Pending Studies at Discharge: No Stand-Alone Forms: My [facility], Smoking Cessation Medications and DC Order Prescriptions: New pantoprazole 40 mg Tablet,Delayed Release (Dr/Ec) 40 mg PO QAM 30 Days Qty: 30 RF: 0 aspirin 81 mg Tablet,Delayed Release (Dr/Ec) 81 mg PO QAM 30 Days Qty: 30 RF: 0 Continued losartan 50 mg tablet 50 mg PO BID RF: 0 paroxetine HCl 20 mg tablet 20 mg PO DAILY RF: 0 cholestyramine (with sugar) 4 gram Powder 4 g PO DAILY RF: 0 cholecalciferol (vitamin D3) [Vitamin D3] 25 mcg (1,000 unit) Tablet 25 mcg PO DAILY RF: 0 Discontinued hydrochlorothiazide 12.5 mg tablet 12.5 mg PO BID RF: 0 famotidine 40 mg Tablet 40 mg PO DAILY RF: 0 Discharge Orders: Discharge Order (Routine); Ordered 05/29/20 Ordered By: Tom Centeno Admission Data Admit Date/Time: 05/28/20 17:43 Attending Provider: Tom Centeno Admit Provider: Jacobo Walls Primary Care Provider: Leana Durant Other Providers: Torrey Mcdonald ; Jacobo Walls Coding Level of Care Code 65461 OBS Care - Discharge Diagnoses Chest pain R07.9 Abnormal EKG R94.31 Diarrhea R19.7 GERD (gastroesophageal reflux disease) K21.9 Anxiety F41.9 Hypokalemia E87.6
[2020-05-29] MEDS ORDERED: PARoxetine HCL 20 MG TAB PO SCH (16:30)
--- NOTE | 2020-05-29 19:43 | XCELERA ---
[id number]
== END 2020-05-29 13:31 | disposition home or self-care (01) ==
LOC: ED 14:11 → 2W 14:11 → SUATTDRO 17:43 → 2W 19:59